=== PATIENT | female | born 1970 | race Hispanic/Latino ===

== ENCOUNTER 2018-12-25 23:48 | Emergency (ER) | payer OTHER ==
[2018-12-26] MEDS ORDERED: LIDOCAINE HCL 2% VISCOUS 15 ML UDCUP ONE (01:58)
[2018-12-26] MEDS ORDERED: MAG HYDROX/AL HYDROX/SIMETH ES 30 ML SUSP UDCUP ONE (01:58)
== END 2018-12-26 02:05 | disposition home or self-care (01) ==
LOC: EDH 23:48
DX: R07.0 Pain in throat (principal)
CPT/HCPCS: 70490